=== PATIENT | female | born 1975 | race Hispanic/Latino ===

== ENCOUNTER 2024-08-06 05:35 | Inpatient (IN) | payer BC ==
[~2024-08-06] VITALS: Ht 154.9 cm; Wt 79.4 kg
[2024-08-06] VITALS (8 sets, daily range): BP systolic 117–144; BP diastolic 77–90; PULSE 84–95; RESP 16–19; TEMP 97.6–98.2; O2SAT 98–99
[2024-08-06 05:55] LABS: BASOPHILS # (AUTO) 0.1 (0.0-0.1); BASOPHILS % 0.6 % (0.0-1.0); EOSINOPHILS # (AUTO) 0.1 (0.0-0.4); EOSINOPHILS % 1.6 % (0.0-6.0); HEMATOCRIT 41.4 % (34.2-44.1); HEMOGLOBIN 13.9 g/dL (12.0-16.0); LYMPHOCYTES # (AUTO) 1.7 (1.0-3.2); LYMPHOCYTES % 19.9 % (18.0-39.1); MEAN CORPUSCULAR HEMOGLOBIN 32.6 pg (28-32); MEAN CORPUSCULAR HGB CONC 33.6 g/dL (31-35); MEAN CORPUSCULAR VOLUME 97.2 fL (81-99); MONOCYTES # (AUTO) 0.7 (0.2-0.8); MONOCYTES % 8.3 % (4.4-11.3); NEUTROPHILS # (AUTO) 5.7 (2.1-6.9); NEUTROPHILS % 69.1 % (38.7-80.0); PLATELET COUNT 283 x10e3/uL (140-360); RED BLOOD COUNT 4.26 x10e6/uL (3.6-5.1); RED CELL DISTRIBUTION WIDTH 12.8 % (11.7-14.4); WHITE BLOOD COUNT 8.29 x10e3/uL (4.8-10.8)
[2024-08-06 05:58] LABS: BILIRUBIN,URINE NEGATIVE (NEGATIVE); CLARITY,URINE CLEAR (CLEAR); COLOR,URINE YELLOW (YELLOW); GLUCOSE, URINE NEGATIVE (NEGATIVE); KETONES,URINE NEGATIVE (NEGATIVE); LEUKOCYTE ESTERASE ,URINE NEGATIVE (NEGATIVE); NITRITE,URINE NEGATIVE (NEGATIVE); PH,URINE 5.5 (5 - 7); PROTEIN,URINE DIPSTICK NEGATIVE (NEGATIVE); URINE UROBILINOGEN 0.2 mg/dL (0.2 - 1)
[2024-08-06] MEDS ORDERED: SODIUM CHLORIDE FLUSH 10 ML SYR IV PRN (06:00)
[2024-08-06 06:01] LABS: BACTERIA,URINE MANY /HPF; EPITHELIAL CELLS,URINE MODERATE /LPF; MUCUS,URINE RARE; RBC,URINE 0-5 /HPF (0-5); WBC,URINE (MAN) 0-5 /HPF (0-5)
[2024-08-06] MEDS: ONDANSETRON HCL INJ 2MG/ML 2ML 2 MG/ML VIAL IV STA ×2 (06:18→08:04)
[2024-08-06] MEDS: SODIUM CHLORIDE 0.9% 1000ML 1,000 ML IV STA ×2 (06:18→08:04)
[2024-08-06 06:22] LABS: ALANINE AMINOTRANSFERASE 62 IU/L (0-55); ALBUMIN 3.9 g/dL (3.5-5.0); ALBUMIN/GLOBULIN RATIO 1.1 (0.8-2.0); ALKALINE PHOSPHATASE 99 IU/L (40-150); ANION GAP 14.3 mmol/L (8-16); BILIRUBIN,TOTAL 0.3 mg/dL (0.2-1.2); BLOOD UREA NITROGEN 12 mg/dL (7-26); BUN/CREATININE RATIO 14 (6-25); CALCIUM 9.1 mg/dL (8.4-10.2); CARBON DIOXIDE 23 mmol/L (22-29); CHLORIDE 107 mmol/L (98-107); CREATININE, SERUM 0.84 mg/dL (0.57-1.11); EST GLOMERULAR FILTRATION RATE 85 ML/MIN (>=60); GLUCOSE 109 mg/dL (74-118); LIPASE 26 U/L (8-78); POTASSIUM 4.3 mmol/L (3.5-5.1); SODIUM 140 mmol/L (136-145); TOTAL PROTEIN 7.5 g/dL (6.5-8.1)
[2024-08-06] MEDS ORDERED: IOPAMIDOL 370 MG/ML 100 ML INFUS..BTL INJ ONE (06:37)
[2024-08-06] MEDS: Morphine 4mg INJECTION 4 MG/ML INJ IV STA (06:43)
[2024-08-06] MEDS ORDERED: ONDANSETRON HCL INJ 2MG/ML 2ML 2 MG/ML VIAL ONE (07:08)
[2024-08-06] MEDS: HYDROMORPHONE 1MG/1ML INJ IV STA (08:05)
[2024-08-06] MEDS ORDERED: HYDROMORPHONE 2MG/ML IV PRN (08:15)
[2024-08-06] MEDS ORDERED: ONDANSETRON HCL INJ 2MG/ML 2ML 2 MG/ML VIAL IV PRN (08:15)
[2024-08-06] MEDS ORDERED: PROMETHAZINE 12.5MG/ NACL 0.9% 12.5 MG/50 ML BAG IV PRN (08:15)
[2024-08-06] MEDS: SODIUM CHLORIDE 0.9% 1000ML 1,000 ML IV SCH (09:24)
[2024-08-06] MEDS ORDERED: HYDRALAZINE HCL 20 MG/ML VIAL IV PRN (11:30)
[2024-08-07] VITALS (12 sets, daily range): BP systolic 114–143; BP diastolic 71–85; PULSE 67–88; RESP 17–18; TEMP 97.8–98.7; O2SAT 95–100
[2024-08-07 07:18] LABS: BASOPHILS % 0.3 % (0.0-1.0); EOSINOPHILS % 0.2 % (0.0-6.0); HEMATOCRIT 39.1 % (34.2-44.1); HEMOGLOBIN 12.9 g/dL (12.0-16.0); LYMPHOCYTES # (AUTO) 1.1 (1.0-3.2); LYMPHOCYTES % 11.7 % (18.0-39.1); MEAN CORPUSCULAR HEMOGLOBIN 32.3 pg (28-32); MONOCYTES # (AUTO) 0.5 (0.2-0.8); MONOCYTES % 5.5 % (4.4-11.3); NEUTROPHILS # (AUTO) 7.8 (2.1-6.9); NEUTROPHILS % 81.9 % (38.7-80.0); PLATELET COUNT 251 x10e3/uL (140-360); RED BLOOD COUNT 3.99 x10e6/uL (3.6-5.1); RED CELL DISTRIBUTION WIDTH 12.8 % (11.7-14.4); WHITE BLOOD COUNT 9.55 x10e3/uL (4.8-10.8)
[2024-08-07 07:40] LABS: ALBUMIN 3.2 g/dL (3.5-5.0); ANION GAP 14.6 mmol/L (8-16); BILIRUBIN,TOTAL 0.4 mg/dL (0.2-1.2); CALCIUM 7.9 mg/dL (8.4-10.2); CREATININE, SERUM 0.74 mg/dL (0.57-1.11); POTASSIUM 3.6 mmol/L (3.5-5.1); TOTAL PROTEIN 6.5 g/dL (6.5-8.1)
[2024-08-07] MEDS ORDERED: ROCURONIUM BROMIDE 1 ML IV ONE (09:32)
[2024-08-07] MEDS ORDERED: FENTANYL CITRATE/PF 100MCG/2 ML INJ ONE (09:32)
[2024-08-07] MEDS ORDERED: LIDOCAINE HCL 2% LOCAL INJ 5 ML SDV VIAL INJ ONE (09:32)
[2024-08-07] MEDS ORDERED: MIDAZOLAM HCL 2 MG/2 ML VIAL ONE (09:33)
[2024-08-07] MEDS ORDERED: PROPOFOL IV EMULSION 10 MG/ML 20 ML VIAL ONE (09:33)
[2024-08-07] MEDS ORDERED: DEXAMETHASONE SOD PHOS INJ 4 MG/ML SDV ONE (10:36)
[2024-08-07] MEDS ORDERED: ACETAMINOPHEN 1000 MG/100 ML 100 ML IV ONE (10:44)
[2024-08-07] MEDS ORDERED: KETOROLAC TROMETHAMINE 30 MG/ML VIAL ONE (10:48)
[2024-08-07] MEDS ORDERED: ONDANSETRON HCL INJ 2MG/ML 2ML 2 MG/ML VIAL ONE (10:48)
[2024-08-07] MEDS ORDERED: SUGAMMADEX SODIUM 200 MG/2 ML VIAL IV ONE (11:00)
[2024-08-07] MEDS ORDERED: ONDANSETRON HCL INJ 2MG/ML 2ML 2 MG/ML VIAL IV PRN (11:15)
[2024-08-07] MEDS: SODIUM CHLORIDE 0.9% 1000ML 1,000 ML IV SCH (11:15)
[2024-08-07] MEDS: ACETAMINOPHEN 1000 MG/100 ML IV PRN (12:30)
[2024-08-07] MEDS: MELATONIN 5 MG TABLET PO PRN (20:55)
[2024-08-08] VITALS (7 sets, daily range): BP systolic 130–149; BP diastolic 86–97; PULSE 65–90; RESP 17–18; TEMP 98–98.3; O2SAT 95–100
[2024-08-08] MEDS ORDERED: ULTRAM 50MG50 MG PO (06:08)
[2024-08-08] MEDS: TRAMADOL HCL 50 MG TAB PO PRN (09:54)
== END 2024-08-08 15:10 | disposition home or self-care (01) | DRG 418 ==
LOC: ER 05:37 → ERHOLD 08:20 → OBSVTOIN 10:08 → MED/SURG2 10:54
PROVIDERS: ADMIT Internal Medicine; ATTEND Internal Medicine
PROC: 0FT44ZZ Resection of Gallbladder, Percutaneous Endoscopic Approach (ICD-10-PCS; principal; 2024-08-07 10:23)
DX: K80.00 Calculus of gallbladder with acute cholecystitis without obstruction (principal); N39.0 Urinary tract infection, site not specified; K76.0 Fatty (change of) liver, not elsewhere classified; E86.0 Dehydration; E66.9 Obesity, unspecified; Z68.33 Body mass index [BMI] 33.0-33.9, adult
CPT/HCPCS: 36415; 74177; 76705; 80053; 81001; 83690; 84484; 84702; 85025; 88304; 93005; 94799; 99284; J1100; J1171; J1885; J2003; J2250; J2270; J2405; J2470; J2543; J7030; Q9967

== ENCOUNTER 2024-09-07 02:06 | Emergency (ER) | payer BC ==
[~2024-09-07] VITALS: Ht 154.9 cm; Wt 79.4 kg
[~2024-09-07 02:06] MED LIST: ULTRAM 50MG50 MG PO
[2024-09-07 02:20] VITALS: RESP 19; TEMP 99
[2024-09-07] MEDS ORDERED: SODIUM CHLORIDE FLUSH 10 ML SYR IV PRN (02:30)
[2024-09-07 02:57] LABS: BASOPHILS % 0.5 % (0.0-1.0); EOSINOPHILS # (AUTO) 0.1 (0.0-0.4); EOSINOPHILS % 1.5 % (0.0-6.0); HEMATOCRIT 41.5 % (34.2-44.1); HEMOGLOBIN 13.9 g/dL (12.0-16.0); LYMPHOCYTES # (AUTO) 1.2 (1.0-3.2); LYMPHOCYTES % 18.3 % (18.0-39.1); MEAN CORPUSCULAR HEMOGLOBIN 32.3 pg (28-32); MEAN CORPUSCULAR HGB CONC 33.5 g/dL (31-35); MEAN CORPUSCULAR VOLUME 96.3 fL (81-99); MONOCYTES # (AUTO) 0.6 (0.2-0.8); MONOCYTES % 9.3 % (4.4-11.3); NEUTROPHILS # (AUTO) 4.6 (2.1-6.9); NEUTROPHILS % 69.9 % (38.7-80.0); PLATELET COUNT 277 x10e3/uL (140-360); RED BLOOD COUNT 4.31 x10e6/uL (3.6-5.1); RED CELL DISTRIBUTION WIDTH 13.1 % (11.7-14.4); WHITE BLOOD COUNT 6.57 x10e3/uL (4.8-10.8)
[2024-09-07] MEDS: KETOROLAC TROMETHAMINE 30 MG/ML VIAL IV STA (03:06)
[2024-09-07] MEDS: ONDANSETRON HCL INJ 2MG/ML 2ML 2 MG/ML VIAL IV STA (03:07)
[2024-09-07 03:10] LABS: LIPASE 19 U/L (8-78)
[2024-09-07 03:12] LABS: BILIRUBIN,URINE NEGATIVE (NEGATIVE); CLARITY,URINE CLEAR (CLEAR); COLOR,URINE YELLOW (YELLOW); GLUCOSE, URINE NEGATIVE (NEGATIVE); KETONES,URINE NEGATIVE (NEGATIVE); LEUKOCYTE ESTERASE ,URINE NEGATIVE (NEGATIVE); NITRITE,URINE NEGATIVE (NEGATIVE); PH,URINE 6 (5 - 7); PROTEIN,URINE DIPSTICK NEGATIVE (NEGATIVE); URINE UROBILINOGEN 0.2 mg/dL (0.2 - 1)
[2024-09-07 03:13] LABS: ALBUMIN/GLOBULIN RATIO 1.2 (0.8-2.0); ANION GAP 13.2 mmol/L (8-16); BILIRUBIN,TOTAL 0.4 mg/dL (0.2-1.2); CALCIUM 8.9 mg/dL (8.4-10.2); CREATININE, SERUM 0.8 mg/dL (0.57-1.11); POTASSIUM 4.2 mmol/L (3.5-5.1); TOTAL PROTEIN 7.4 g/dL (6.5-8.1)
[2024-09-07 03:21] LABS: BACTERIA,URINE MODERATE /HPF; EPITHELIAL CELLS,URINE MODERATE /LPF; RBC,URINE 0-5 /HPF (0-5)
[2024-09-07 03:27] LABS: TROPONIN I < 0.001 ng/mL (0-0.300)
[2024-09-07] MEDS ORDERED: DICYCLOMINE HCL20 MG PO (04:37)
[2024-09-07] MEDS ORDERED: PANTOPRAZOLE SO40 MG PO (04:37)
[2024-09-07] MEDS ORDERED: ONDANSETRON ODT4 MG SL (04:37)
[2024-09-07 04:48] VITALS: PULSE 81
[2024-09-07 04:54] VITALS: BP 118/85; PULSE 81; O2SAT 100
== END 2024-09-07 04:50 | disposition home or self-care (01) ==
LOC: ER 02:50
DX: R10.13 Epigastric pain (principal); R16.0 Hepatomegaly, not elsewhere classified; K76.0 Fatty (change of) liver, not elsewhere classified; R11.0 Nausea; R94.31 Abnormal electrocardiogram [ECG] [EKG]
CPT/HCPCS: 36415; 74176; 80053; 81001; 81025; 83690; 84484; 85025; 93005; 99284; J1885; J2405; J2470